=== PATIENT | female | born 1955 | race African-American/Black ===

== ENCOUNTER 2017-06-18 13:08 | Outpatient (CLI) | payer BC, OTHER | END 2017-06-18 13:09 | disposition home or self-care (01) | LOC: ULT 13:08 | PROVIDERS: ATTEND Family Medicine | DX: R06.02 Shortness of breath (principal); I08.1 Rheumatic disorders of both mitral and tricuspid valves | CPT/HCPCS: 93306 ==

== ENCOUNTER 2017-10-19 02:55 | Emergency (ER) | payer BC, OTHER ==
[2017-10-19] MEDS ORDERED: Dexamethasone 4 MG TAB ONE (05:22)
== END 2017-10-19 05:28 | disposition home or self-care (01) ==
LOC: ERS 02:55
DX: J02.9 Acute pharyngitis, unspecified (principal); G47.30 Sleep apnea, unspecified; F41.9 Anxiety disorder, unspecified; F32.9 Major depressive disorder, single episode, unspecified; Z79.899 Other long term (current) drug therapy
CPT/HCPCS: 87081; 87430; 99283; J8540

== ENCOUNTER 2018-01-13 11:01 | Outpatient (CLI) | payer BC | END 2018-01-13 11:02 | disposition home or self-care (01) | LOC: BICMAMMO 11:01 | PROVIDERS: ATTEND Urology | DX: Z12.31 Encounter for screening mammogram for malignant neoplasm of breast (principal); Z80.3 Family history of malignant neoplasm of breast | CPT/HCPCS: 77063; 77067 ==

== ENCOUNTER 2018-03-06 20:46 | Emergency (ER) | payer BC ==
[2018-03-06 21:33] LABS: #Eosinphils 0.1 thou/uL (0.0-0.7); #Lymphocytes 2.5 thou/uL (1.20-3.40); #Monocytes 0.4 thou/uL (0.11-0.59); #Neutrophils 3.6 thou/uL (1.40-6.50); %Basophils 0.6 % (0.0-1.0); %Lymphocytes 37.6 % (21.0-51.0); %Monocytes 6.6 % (0.0-10.0); %Neutrophils 54.2 % (42.0-75.0); Hemoglobin 14.3 g/dL (12.0-16.0); Mean Corpuscular HGB CONC 34.2 g/dL (32.0-36.0); Mean Corpuscular Hemoglobin 27.9 pg (27.0-31.0); Mean Corpuscular Volume 81.6 fL (78.0-98.0); Mean Platelet Volume 9.5 fL (7.4-10.4); Platelet Count 169 thou/uL (130-400); RBC Distribution Width 12.2 % (11.5-14.5); Red Blood Cell (RBC) Count 5.13 mill/uL (4.20-5.40); White Blood Cell (WBC) Count 6.7 thou/uL (4.8-10.8)
[2018-03-06 21:50] LABS: Bilirubin Negative (Negative); Blood, Urine Negative (Negative); Clarity CLEAR (Clear); Glucose, Urine (Dipstick) Negative (Negative); Leukocyte Trace (Negative); Nitrite Negative (Negative); Protein, Urine (Dipstick) Negative (Neg-Trace)
[2018-03-06 21:52] LABS: Bacteria/HPF None Seen HPF (None Seen); Hyaline Casts/LPF 0-3 HYALINE CAST LPF (0-3 Hyaline); Squamous Epithelial 0-3 HPF (0-3); WBC/HPF 0-3 HPF (0-3)
[2018-03-06 21:57] LABS: ALT (SGPT) 14 U/L (8-55); AST (SGOT) 30 U/L (5-34); Albumin 4.2 g/dL (3.4-4.8); Alkaline Phosphatase 90 U/L (40-150); Anion Gap 15 mmol/L (10-20); BUN (Urea Nitrogen) 16 mg/dL (9.8-20.1); Bilirubin, Total 0.4 mg/dL (0.2-1.2); Calc. Creatinine Clearance 0 mL/min (70-130); Calcium 9.4 mg/dL (7.8-10.44); Carbon Dioxide 22 mmol/L (23-31); Chloride 104 mmol/L (98-107); Estimated GFR-MDRD 64; Glucose 114 mg/dL (80-115); Lipase 20 U/L (8-78); Potassium 4.4 mmol/L (3.5-5.1); Protein, Total 8.2 g/dL (6.0-8.3); Sodium 137 mmol/L (136-145)
--- NOTE | 2018-03-06 23:12 | ULT ---
RIGHT UPPER QUADRANT ABDOMINAL ULTRASOUND: 03/06/18 HISTORY: Right upper quadrant abdominal pain. TECHNIQUE: Multiplanar raman scale and color doppler images were obtained in a right upper quadrant abdominal ult rasound. FINDINGS: The liver is normal in echogenicity without focal lesions or intrahepatic ductal dilatation. The gall bladder is contracted as the patient recently ate. Gallbladder wall thickening is likely secondary to the contracted state of the gallbladder. The commo n bile duct is normal measuring 4 mm. the visualized portions of the pancreas are unremarkable. The r ight kidney is normal in echogenicity without hydronephrosis or calculus and measures 9.5 cm in lengt h. IMPRESSION: No significant right upper quadrant abnormality. POS: [facility]
--- NOTE | 2018-03-06 23:35 | CT ---
CTA OF THE CHEST WITH CONTRAST: 03/06/18 COMPARISON: None. HISTORY: Elevated D-dimer and chest pain. TECHNIQUE: Multiple contiguous axial images were obtained in a CTA of the chest with contrast per pulmonary embo lism protocol. 3D oblique MIP reformats and direct coronal reformats were performed. FINDINGS: The pulmonary arteries are well opacified without filling defects to suggest pulmonary emboli. The he art is upper limits of normal in size without focal cardiac abnormality. No hilar or mediastinal lymp hadenopathy are seen. No focal infiltrate are seen in the lungs. No suspicious pulmonary nodules are seen. No pneumothorax or pleural effusions are present. Mild degenerative changes are see in the spine. The visualized subdiaphragmatic structures are unrema rkable. The chest wall soft tissues are unremarkable. IMPRESSION: No evidence of pulmonary thromboembolism. POS: [facility]
== END 2018-03-07 00:58 | disposition home or self-care (01) ==
LOC: ERS 20:46
DX: K82.8 Other specified diseases of gallbladder (principal); G47.30 Sleep apnea, unspecified; F41.9 Anxiety disorder, unspecified; F32.9 Major depressive disorder, single episode, unspecified; Z79.899 Other long term (current) drug therapy
CPT/HCPCS: 36415; 71045; 71275; 76705; 80053; 80061; 81003; 81015; 82306; 83690; 84443; 85025; 85379

== ENCOUNTER 2019-10-28 08:29 | Outpatient (CLI) | payer BC ==
--- NOTE | 2019-10-28 10:31 | MMO ---
Bilateral MAMMO Bilat Diag [facility]. CLINICAL HISTORY: Patient is 64 years old and is seen for screening. The patient has the following family history of breast cancer: mother, at age 70, malignant (generic). The patient has no personal history of cancer. VIEWS: The views performed were: bilateral craniocaudal with tomosynthesis and bilateral mediolateral oblique with tomosynthesis. FILMS COMPARED: The present examination has been compared to [place] [facility] [place], and at [facility] on 09/22/2015, 01/13/2018 and 10/28/2019. This study has been interpreted with the assistance of computer-aided detection. MAMMOGRAM FINDINGS: The breasts are almost entirely fat. Palpable finding upper, outer left breast shows no mammographic or US finding. There are no suspicious masses, suspicious calcifications, or new areas of architectural distortion. IMPRESSION: THERE IS NO MAMMOGRAPHIC EVIDENCE OF MALIGNANCY. A ROUTINE FOLLOW-UP MAMMOGRAM IN 1 YEAR IS RECOMMENDED. THE RESULTS OF THIS EXAM WERE SENT TO THE PATIENT. ACR BI-RADS Category 2 - Benign finding MAMMOGRAPHY NOTE: 1. A negative mammogram report should not delay a biopsy if a dominant of clinically suspicious mass is present. 2. Approximately 10% to 15% of breast cancers are not detected by mammography. 3. Adenosis and dense breasts may obscure an underlying neoplasm. Reported by: SHILPA SIMS MD Electonically Signed: [id number]
--- NOTE | 2019-10-28 11:04 | ULT ---
RIGHT BREAST ULTRASOUND: HISTORY: The patient reports a palpable abnormality 10 o'clock in the right breast approximately 15 cm from th e nipple. COMPARISON: Mammogram done today. FINDINGS: No cystic or solid lesion is seen on ultrasound. No mammographic correlate for a palpable finding. IMPRESSION: BIRADS category 2 - benign findings. POS: [facility]
== END 2019-10-28 08:30 | disposition home or self-care (01) ==
LOC: BICMAMMO 08:29
PROVIDERS: ATTEND Family Medicine
DX: N64.4 Mastodynia (principal)
CPT/HCPCS: 77066; G0279

== ENCOUNTER 2019-12-13 17:53 | Emergency (ER) | payer BC ==
[2019-12-13 18:28] LABS: #Eosinphils 0.1 thou/uL (0.0-0.7); #Lymphocytes 2.8 thou/uL (1.20-3.40); #Monocytes 0.4 thou/uL (0.11-0.59); #Neutrophils 2.3 thou/uL (1.40-6.50); %Basophils 0.5 % (0.0-1.0); %Eosinophils 0.9 % (0.0-10.0); %Lymphocytes 49.8 % (21.0-51.0); %Monocytes 6.4 % (0.0-10.0); %Neutrophils 42.4 % (42.0-75.0); Hemoglobin 14.2 g/dL (12.0-16.0); Mean Corpuscular HGB CONC 33.2 g/dL (32.0-36.0); Mean Corpuscular Hemoglobin 27.3 pg (27.0-31.0); Mean Corpuscular Volume 82.1 fL (78.0-98.0); Mean Platelet Volume 9.8 fL (7.4-10.4); Platelet Count 201 thou/uL (130-400); RBC Distribution Width 12.2 % (11.5-14.5); Red Blood Cell (RBC) Count 5.22 mill/uL (4.20-5.40); White Blood Cell (WBC) Count 5.5 thou/uL (4.8-10.8)
[2019-12-13 18:34] LABS: Bilirubin Negative (Negative); Blood, Urine Negative (Negative); Clarity Clear (Clear); Glucose, Urine (Dipstick) Normal (Negative); Leukocyte Negative Leu/uL (Negative); Nitrite Negative (Negative); Protein, Urine (Dipstick) Negative (Neg-Trace); Urobilinogen Normal mg/dL (Less than 2)
[2019-12-13 18:50] LABS: ALT (SGPT) 16 U/L (8-55); AST (SGOT) 21 U/L (5-34); Albumin 4.5 g/dL (3.4-4.8); Alkaline Phosphatase 96 U/L (40-110); Anion Gap 13 mmol/L (10-20); BUN (Urea Nitrogen) 11 mg/dL (9.8-20.1); Bilirubin, Total 0.9 mg/dL (0.2-1.2); Calc. Creatinine Clearance 0 mL/min (70-130); Carbon Dioxide 26 mmol/L (23-31); Chloride 103 mmol/L (98-107); Estimated GFR-MDRD 81; Globulin 3.7 g/dL (2.4-3.5); Glucose 89 mg/dL (80-115); Potassium 3.9 mmol/L (3.5-5.1); Protein, Total 8.2 g/dL (6.0-8.3); Sodium 138 mmol/L (136-145)
[2019-12-13] MEDS ORDERED: Ondansetron PF 4 MG/2 ML Vial ONE (20:02)
== END 2019-12-13 20:11 | disposition home or self-care (01) ==
LOC: ERS 17:53
DX: K92.2 Gastrointestinal hemorrhage, unspecified (principal); E78.5 Hyperlipidemia, unspecified; E78.00 Pure hypercholesterolemia, unspecified; F41.9 Anxiety disorder, unspecified; G47.30 Sleep apnea, unspecified; F32.9 Major depressive disorder, single episode, unspecified; Z79.899 Other long term (current) drug therapy
CPT/HCPCS: 36415; 80053; 81003; 83605; 85025; 99284; J2405

== ENCOUNTER 2020-07-03 07:45 | Outpatient (CLI) | payer BC ==
--- NOTE | 2020-07-03 10:17 | RAD ---
LEFT SHOULDER 4 VIEWS: Date: 07/03/2020 HISTORY: Left shoulder pain. FINDINGS: There are moderate arthritic changes of the glenohumeral joint space. There is some mild arthrosis of the AC joint. No signs of any acute fracture or dislocation. Findings that would suggest old coracoc lavicular ligament injury is incidentally seen. AC joint is in normal position. IMPRESSION: Moderate arthritic change of the shoulder. POS: [facility]
--- NOTE | 2020-07-03 10:18 | RAD ---
RIGHT SHOULDER 4 VIEWS: Date: 07/03/2020 HISTORY: Shoulder pain. FINDINGS: Moderately severe arthritic changes of the glenohumeral joint space and some moderate arthrosis of th e AC joints noted. Bones appear somewhat demineralized. IMPRESSION: Moderate arthritic changes of the shoulder. POS: [facility]
== END 2020-07-03 07:46 | disposition home or self-care (01) ==
LOC: SCSRAD 07:45
PROVIDERS: ATTEND Family Medicine
DX: M25.511 Pain in right shoulder (principal); M25.512 Pain in left shoulder; M19.011 Primary osteoarthritis, right shoulder; M19.012 Primary osteoarthritis, left shoulder

== ENCOUNTER 2020-11-02 08:10 | Outpatient (CLI) | payer BC | END 2020-11-02 08:11 | disposition home or self-care (01) | LOC: BICMAMMO 08:10 | PROVIDERS: ATTEND Family Medicine | DX: Z12.31 Encounter for screening mammogram for malignant neoplasm of breast (principal); Z80.3 Family history of malignant neoplasm of breast | CPT/HCPCS: 77063; 77067 ==

== ENCOUNTER 2021-08-01 19:30 | Outpatient (CLI) | payer MEDICARE, BC | END 2021-08-01 19:31 | disposition home or self-care (01) | LOC: SLEEPLAB 19:30 | PROVIDERS: ATTEND Family Medicine | DX: G47.33 Obstructive sleep apnea (adult) (pediatric) (principal); R53.83 Other fatigue; K21.9 Gastro-esophageal reflux disease without esophagitis; R06.83 Snoring; G47.10 Hypersomnia, unspecified; G47.00 Insomnia, unspecified | CPT/HCPCS: 95810 ==

== ENCOUNTER 2021-12-28 11:21 | Outpatient (CLI) | payer MEDICARE, BC | END 2021-12-28 11:22 | disposition home or self-care (01) | LOC: SCSRAD 11:21 | PROVIDERS: ATTEND Family Medicine | DX: R10.2 Pelvic and perineal pain (principal) | CPT/HCPCS: 72170 ==

== ENCOUNTER 2022-01-14 13:51 | Outpatient (CLI) | payer MEDICARE, BC | END 2022-01-14 13:52 | disposition home or self-care (01) | LOC: BICMAMMO 13:51 | PROVIDERS: ATTEND Family Medicine | DX: N64.4 Mastodynia (principal) | CPT/HCPCS: 76642; 77066; G0279 ==

== ENCOUNTER 2022-10-10 15:58 | Observation (INO) | payer MEDICARE, BC ==
[2022-10-10] MEDS ORDERED: Meclizine HCl 25 MG TAB ONE (16:50)
[2022-10-10 16:51] LABS: #Monocytes 0.4 thou/uL (0.11-0.59); #Neutrophils 3.8 thou/uL (1.40-6.50); %Basophils 0.5 % (0.0-1.0); %Eosinophils 0.6 % (0.0-10.0); %Monocytes 6.8 % (0.0-10.0); Hemoglobin 13.4 g/dL (12.0-16.0); Mean Corpuscular HGB CONC 32.9 g/dL (32.0-36.0); Mean Corpuscular Hemoglobin 27.5 pg (27.0-31.0); Mean Corpuscular Volume 83.8 fl (78.0-98.0); Mean Platelet Volume 9.8 fL (7.4-10.4); Platelet Count 184 10x3/uL (130-400); RBC Distribution Width 12.2 % (11.5-14.5); Red Blood Cell (RBC) Count 4.88 mill/uL (4.20-5.40); White Blood Cell (WBC) Count 6.3 10x3/uL (4.8-10.8)
[2022-10-10 17:12] LABS: Anion Gap 14 mmol/L (10-20); BUN (Urea Nitrogen) 17 mg/dL (9.8-20.1); Calc. Creatinine Clearance 0 mL/min (70-130); Calcium 9.6 mg/dL (7.8-10.44); Carbon Dioxide 21 mmol/L (23-31); Chloride 104 mmol/L (98-107); Estimated GFR 65; Glucose 97 mg/dL (80-115); Potassium 4.4 mmol/L (3.5-5.1); Sodium 135 mmol/L (136-145)
[2022-10-10 17:46] LABS: Bacteria/HPF 3+ HPF (None Seen); Bilirubin Negative (Negative); Blood, Urine Negative (Negative); Clarity Clear (Clear); Glucose, Urine (Dipstick) Normal (Negative); Ketone, Urine Negative (Negative); Leukocyte 500 Leu/uL (Negative); Nitrite Negative (Negative); Protein, Urine (Dipstick) Negative (Neg-Trace); RBC/HPF 0-3 HPF (0-3); Specific Gravity, Urine 1.017 (1.002-1.036); Squamous Epithelial 0-3 HPF (0-3); Urobilinogen Normal mg/dL (Less than 2); WBC/HPF Greater than 50 HPF (0-3)
[2022-10-10] MEDS ORDERED: cefTRIAXone\\ROCEPHIN 1 GM VIAL ONE (19:25)
[2022-10-10] MEDS ORDERED: Ondansetron PF 4 MG/2 ML Vial IVP PRN (21:13)
[2022-10-10] MEDS ORDERED: Ondansetron ODT 4 MG TAB PO PRN (21:13)
[2022-10-10] MEDS ORDERED: Acetaminophen 325 MG TAB PO PRN (21:13)
[2022-10-10] MEDS ORDERED: hydrALAZINE 20 MG/ML VIAL SLOW IVP PRN (21:21)
[2022-10-10] MEDS ORDERED: Meclizine HCl 25 MG TAB PO PRN (21:21)
[2022-10-10] MEDS ORDERED: Aspirin Chewable 81 MG TAB ONE (21:33)
[2022-10-10 21:35] LABS: Troponin I Less than 0.010 ng/mL (< 0.028)
[2022-10-10 21:41] LABS: Magnesium 2.1 mg/dL (1.6-2.6); Phosphorus 3.9 mg/dL (2.3-4.7)
[2022-10-10 23:32] LABS: Hemoglobin A1c 5.5 % (4.0-6.0)
[2022-10-10 23:47] VITALS: BMI 33.0
[2022-10-11 00:04] LABS: Troponin I 0.012 ng/mL (< 0.028)
[2022-10-11 05:46] LABS: #Eosinphils 0.1 thou/uL (0.0-0.7); #Lymphocytes 2.7 thou/uL (1.20-3.40); #Monocytes 0.5 thou/uL (0.11-0.59); #Neutrophils 2.4 thou/uL (1.40-6.50); %Basophils 0.6 % (0.0-1.0); %Eosinophils 1.7 % (0.0-10.0); %Lymphocytes 47.2 % (21.0-51.0); %Monocytes 8.6 % (0.0-10.0); %Neutrophils 41.9 % (42.0-75.0); Mean Corpuscular HGB CONC 32.3 g/dL (32.0-36.0); Mean Corpuscular Hemoglobin 27.2 pg (27.0-31.0); Mean Corpuscular Volume 84.3 fl (78.0-98.0); Mean Platelet Volume 9.7 fL (7.4-10.4); Platelet Count 176 10x3/uL (130-400); RBC Distribution Width 12.3 % (11.5-14.5); Red Blood Cell (RBC) Count 4.77 mill/uL (4.20-5.40); White Blood Cell (WBC) Count 5.7 10x3/uL (4.8-10.8)
[2022-10-11 06:03] LABS: Anion Gap 11 mmol/L (10-20); BUN (Urea Nitrogen) 13 mg/dL (9.8-20.1); Calc. Creatinine Clearance 104 mL/min (70-130); Calcium 9.2 mg/dL (7.8-10.44); Carbon Dioxide 25 mmol/L (23-31); Cardiac Risk 5.1 (Less than 4.5); Chloride 106 mmol/L (98-107); Cholesterol 197 mg/dl (< 200 Desired); Estimated GFR 78; Glucose 85 mg/dL (80-115); HDL Cholesterol 39 mg/dL (>60 Neg Risk); LDL Cholesterol, Calculated 143 mg/dL; Sodium 138 mmol/L (136-145); Triglycerides 77 mg/dL (Less than 150)
[2022-10-11 07:58] VITALS: BP 136/84; TEMP 97.8
[2022-10-11] MEDS ORDERED: FLUoxetine HCl 20 MG CAP PO SCH (09:00)
[2022-10-11] MEDS ORDERED: Aspirin 81 mg Enteric Coated Tablet PO SCH (09:00)
[2022-10-11] MEDS ORDERED: cefTRIAXone\\ROCEPHIN 1 GM in Sodium Chloride 0.9% 100 ML IVPB SCH (20:00)
== END 2022-10-11 09:14 | disposition home or self-care (01) ==
LOC: ERS 15:58 → NEURO 20:22 → INTOOBSV 20:22
PROVIDERS: ADMIT Family Medicine; ATTEND Family Medicine
DX: H81.399 Other peripheral vertigo, unspecified ear (principal); E78.00 Pure hypercholesterolemia, unspecified; R82.71 Bacteriuria; G47.33 Obstructive sleep apnea (adult) (pediatric); F32.A Depression, unspecified; Z79.899 Other long term (current) drug therapy; Z88.0 Allergy status to penicillin; Z91.040 Latex allergy status; Z20.822 Contact with and (suspected) exposure to COVID-19
CPT/HCPCS: 70450; 70551; 80048 ×2; 80061; 82962; 83036; 83735; 84100; 84443; 84484 ×2; 85025 ×2; 93005; 96361; 96365; 99285; U0003; U0005; 36415; 36416; 81003; 81015; G0378; J0696

== ENCOUNTER 2023-07-02 10:07 | Outpatient (CLI) | payer MEDICARE, BC | END 2023-07-02 10:08 | disposition home or self-care (01) | LOC: BICMAMMO 10:07 | PROVIDERS: ATTEND Family Medicine | DX: R59.0 Localized enlarged lymph nodes (principal) | CPT/HCPCS: 77066; G0279 ==